=== PATIENT | male | born 1945 | race Caucasian/White ===

== ENCOUNTER 2017-07-20 09:47 | Inpatient (IN) | payer OTHER, MEDICARE ==
--- NOTE | 2017-07-20 10:39 | EDPHY ---
General - History Smoking Status: Never smoked Time Seen by Provider: 07/20/17 10:25 Narrative: CHIEF COMPLAINT: Fever, malaise HISTORY OF PRESENT ILLNESS: Patient complains of 1 week history of malaise, fever and chills. Gradual onset. Constant duration. He denies chest pain, shortness of breath, cough, runny nose, sore throat. No urinary complaints. He describes feeling profoundly weak and malaise. Occasional body aches. No neck pain or stiffness. No headache. He has been taking [id number] medications with minimal improved. Does have a history of CLL and prostate cancer, no history of chemotherapy or radiation. No recent travel, surgery or known sick contacts. He did receive his flu shot this year. No other associated complaints or modifying factors. REVIEW OF SYSTEMS: Ten systems reviewed and are negative unless otherwise noted in the HPI PCP: Dr. Yoel Syed SPECIALISTS: [facility] Dr. Bettencourt PAST MEDICAL HISTORY: CLL, prostate cancer, BPH, coronary artery disease PAST SURGICAL HISTORY: No recent surgeries SOCIAL HISTORY: Never smoker. No drug or alcohol use. Lives independently locally FAMILY HISTORY: Noncontributory EXAMINATION General Appearance: Alert, no distress. Well-developed well-nourished for Head: normocephalic, atraumatic Eyes: Pupils equal and round, no conjunctival pallor or injection ENT, Mouth: Mucous membranes dry. Airway widely patent. No erythema or edema. Neck: Normal inspection, supple, non-tender Respiratory: Lungs are clear to auscultation. No wheeze, rhonchi or crackles Cardiovascular: Regular rate and rhythm. No murmur. Gastrointestinal: Abdomen is soft and nontender. No distention. No tympany. No rigidity. Back: non-tender, no bony abnormalities Neurological: GCS 15. A&O, nonfocal, normal gait Skin: Warm and dry, no rash no petechiae or purpura Extremities: Nontender, no pedal edema Psychiatric: Mood and affect normal DIFFERENTIAL DIAGNOSES: Including but not limited to sepsis, influenza, urinary tract infection, pneumonia, viral syndrome MDM: 10:40 a.m. Fever, malaise and myalgias over the past week with no definite system complaint. Vital signs within normal limits. He is not on chemotherapy or radiation therapy. He is afebrile. He does not meet SIRS criteria. He is in no acute distress but I have ordered laboratory studies, chest x-ray urinalysis and IV fluid resuscitation. He is resting comfortably at this time. Dr. Nixon aware of the patient and his vitals. 11:30 a.m. CBC reveals leukocytosis. Chemistry reveals mild hypokalemia and hyponatremia. Urinalysis pending. Influenza test pending. Chest x-ray has been read as a right lower lobe consolidated pneumonia. This does not clinically correlate, await respiratory pathogen panel and monitor him. He is on a pulse oximeter with normal oxygenation between 92 and 96% intermittently. Influenza test is negative. Remainder of the respiratory pathogen panel is pending. Lactic acid has been ordered due to leukocytosis. 11:50 a.m. Lactic acid is normal at 1.0. Patient is attempting to provide a urine sample this time. 12:30 p.m. Patient re-evaluated. He has been evaluated Dr. Kristin Nixon. She recommends CT scan of the chest and proceed with admission with diagnosis of pneumonia. The patient does not meet criteria for sepsis. He has been awake and alert, no acute distress with normal blood pressure, no tachycardia. His oxygenation has been normal on room air. I have ordered a CT scan of the chest and contacted hospitalist for admission. 12:40 p.m. Case discussed with Dr. Jasso. He will admit the patient is service. He agrees with our management and with choice of Rocephin and Zithromax IV for antibiotics. Patient is admitted in stable condition and will receive his CT scan of the chest prior to admission. SUPERVISION: Patient was evaluated and examined in conjunction with my secondary supervising physician as documented. We have both examined the patient. (Madhu Johnson) Discussion: I evaluated and participated in the management of the patient. I also evaluated the patient independently. My co-signature indicates that I have reviewed this chart and I agree with the findings and plan of care as documented. My personal H&P findings include: 72-year-old gentleman presents emergency department reporting 8 days of fever. Patient denies any chest pain or shortness of breath. He denies a cough for runny nose. He does report feeling very weak. No headache. Patient has a significant history of CLL as well as prostate cancer but is currently undergoing no chemotherapy or radiation. On examination the patient is alert and oriented in no acute distress. Lungs are clear to auscultation. No wheezes or rhonchi. Abdomen is soft and nontender. The evaluation emergency department demonstrated a dense right lower lobe pneumonia. CT scan of the chest was performed to evaluate potential pulmonary embolism with postobstructive pneumonia. This was negative for any PE. Patient was admitted to the hospital for ongoing observation, respiratory support, antibiotics. (Kristin Nixon) - Objective Vital Signs: Initial Vital Signs Temperature (C) 36.9 C 07/20/17 09:51 Heart Rate 80 07/20/17 09:51 Respiratory Rate 18 07/20/17 09:51 Blood Pressure 137/77 H 07/20/17 09:51 O2 Sat (%) 92 07/20/17 09:51 O2 Delivery Mode Nasal Cannula O2 (L/minute) 2 Allergies/Adverse Reactions: No Known Allergies Allergy (Verified 07/20/17 09:48) Home Medications: Medication Instructions Recorded Aspirin [Aspirin 81mg (*)] 81 mg PO DAILY 07/20/17 Ibuprofen [Motrin (*)] 200 mg PO Q6HRS PRN 07/20/17 Lisinopril/Hydrochlorothiazide 1 each PO DAILY 07/20/17 [Zestoretic 20-25 mg Tablet] Multivitamins [Multivitamin (*)] 1 each PO DAILY 07/20/17 [place]-3 Fatty Acids [Fish Oil 1000 1,000 mg PO DAILY 07/20/17 mg (*)] Rosuvastatin Calcium [Crestor 40mg 40 mg PO DAILY 07/20/17 (*)] Laboratory Results: Laboratory Results 07/20/17 11:02 07/20/17 11:02 Microbiology Results: MICROBIOLOGY 07/20/17 11:02 Blood Blood Culture - Preliminary 07/20/17 11:20 Blood Blood Culture - Preliminary Medications Given: Acetaminophen (Tylenol) 650 mg PO Q4HRS PRN PRN Reason: Pain, Mild/Fever, Can Take PO Stop: 01/16/18 14:41 Last Admin: 07/20/17 20:32 Dose: 650 mg Aspirin (Aspirin) 81 mg PO DAILY OCHOA Stop: 01/17/18 08:59 Last Admin: 07/21/17 09:14 Dose: 81 mg Atorvastatin Calcium (Lipitor) 40 mg PO DAILY OCHOA Stop: 01/18/18 08:59 Last Admin: 07/22/17 08:49 Dose: Not Given Azithromycin (Zithromax) 500 mg PO DAILY OCHOA PRN Reason: Protocol Stop: 08/20/17 08:59 Last Admin: 07/22/17 08:49 Dose: 500 mg Diphenhydramine HCl (Benadryl Cream) 1 devin TP QID PRN PRN Reason: Itching Stop: 01/18/18 21:11 Last Admin: 07/22/17 22:19 Dose: 1 devin Enoxaparin Sodium (Lovenox) 40 mg SC DAILY OCHOA Stop: 01/17/18 08:59 Last Admin: 07/21/17 09:41 Dose: 40 mg Guaifenesin (Mucinex) 1,200 mg PO BID OCHOA Stop: 01/16/18 14:44 Last Admin: 07/22/17 21:03 Dose: 1,200 mg Lisinopril/HCTZ (Zestoretic) 2 ea PO DAILY OCHOA Stop: 01/17/18 08:59 Last Admin: 07/21/17 09:14 Dose: 2 ea Ceftriaxone Sodium/Dextrose (Rocephin 1 Gm (Premix)) 50 mls @ 100 mls/hr IV DAILY OCHOA PRN Reason: Protocol Stop: 08/20/17 08:59 Last Admin: 07/22/17 10:11 Dose: 50 mls Multivitamins (Tab-A-Katie) 1 each PO DAILY OCHOA Stop: 01/17/18 08:59 Last Admin: 07/22/17 08:49 Dose: 1 each Pantoprazole Sodium (Protonix) 40 mg PO BID OCHOA Stop: 01/17/18 15:30 Last Admin: 07/22/17 21:03 Dose: 40 mg Discontinued Medications Sodium Chloride (Ns) 1,000 mls @ 0 mls/hr IV EDNOW ONE; Wide Open PRN Reason: Protocol Stop: 07/20/17 10:41 Last Admin: 07/20/17 11:20 Dose: 1,000 mls Sodium Chloride (Ns) 1,000 mls @ 0 mls/hr IV EDNOW ONE; Wide Open PRN Reason: Protocol Stop: 07/20/17 11:54 Last Admin: 07/20/17 11:45 Dose: 1,000 mls Azithromycin 500 mg/ Sodium (Chloride) 255 mls @ 255 mls/hr IV EDNOW ONE PRN Reason: Protocol Stop: 07/20/17 13:39 Last Admin: 07/20/17 14:35 Dose: 255 mls Ceftriaxone Sodium/Dextrose (Rocephin 1 Gm (Premix)) 50 mls @ 100 mls/hr IV EDNOW ONE PRN Reason: Protocol Stop: 07/20/17 13:09 Last Admin: 07/20/17 13:11 Dose: 50 mls Sodium Chloride (Ns) 1,000 mls @ 100 mls/hr IV CONT OCHOA Stop: 01/16/18 14:44 Last Admin: 07/21/17 10:48 Dose: 1,000 mls Sodium Chloride (Ns) 1,000 mls @ 75 mls/hr IV CONT OCHOA Stop: 01/17/18 16:59 Last Admin: 07/22/17 05:55 Dose: 1,000 mls Potassium Chloride (Klor Packets) 40 meq PO ONCE ONE PRN Reason: Protocol Stop: 07/20/17 15:16 Last Admin: 07/20/17 15:26 Dose: 40 meq Potassium Chloride (Klor-Con) 10 meq PO ONCE ONE PRN Reason: Protocol Stop: 07/20/17 19:47 Last Admin: 07/20/17 20:31 Dose: 10 meq Potassium Chloride (Klor-Con) 10 meq PO ONCE ONE PRN Reason: Protocol Stop: 07/21/17 07:39 Last Admin: 07/21/17 09:14 Dose: 10 meq Potassium Chloride (Klor-Con) 10 - 40 meq PO ONCE ONE PRN Reason: Protocol Stop: 07/21/17 22:43 Last Admin: 07/21/17 23:23 Dose: 10 meq Potassium Chloride (Klor-Con) 10 - 40 meq PO ONCE ONE PRN Reason: Protocol Stop: 07/22/17 07:34 Last Admin: 07/22/17 08:48 Dose: 30 meq Potassium Chloride (Klor-Con) 40 meq PO ONCE ONE PRN Reason: Protocol Stop: 07/22/17 17:06 Last Admin: 07/22/17 17:23 Dose: 40 meq Rosuvastatin Calcium (Crestor) 40 mg PO DAILY OCHOA Stop: 01/17/18 08:59 Last Admin: 07/21/17 09:14 Dose: Not Given Sodium Chloride (Salt Tablet) 1,000 mg PO BIDMEAL OCHOA Stop: 07/22/17 18:01 Last Admin: 07/22/17 17:22 Dose: 1,000 mg Zolpidem Tartrate (Ambien) 5 - 10 mg PO HS PRN PRN Reason: Sleep/Insomnia, use 1st Stop: 01/16/18 14:41 Last Admin: 07/20/17 20:32 Dose: 5 mg Departure - Departure Disposition: [facility] Acute Clinical Impression: Right lower lobe pneumonia Qualifiers: Pneumonia type: due to unspecified organism Qualified Code(s): J18.1 - Lobar pneumonia, unspecified organism Condition: Good
[2017-07-20] MEDS ORDERED: NS 1,000 ML IV ONE ×2 (10:40→11:53)
[2017-07-20 11:12] LABS: PLATELET COUNT 213 10^3/uL (150-400)
[2017-07-20 11:26] LABS: INR 1.31 (0.83-1.16); PROTIME(PATIENT) 16.5 SEC (12.0-15.0)
[2017-07-20] MEDS ORDERED: AZITHROMYCIN IV 500 MG in NS 250 ML IV ONE (12:40)
[2017-07-20] MEDS ORDERED: IOPAMIDOL (ISOVUE 370) 100 ML BTL IV ONE (12:44)
[2017-07-20] MEDS ORDERED: IBUPROFEN 200 MG TAB PO PRN (14:40)
[2017-07-20] MEDS ORDERED: ONDANSETRON DISINTEGRATING 4 MG TAB PO PRN (14:42)
[2017-07-20] MEDS ORDERED: ZOLPIDEM TARTRATE 5 MG TAB PO PRN (14:42)
[2017-07-20] MEDS ORDERED: ALBUTEROL 3 ML DEYVIAL IH PRN (14:42)
[2017-07-20] MEDS ORDERED: ONDANSETRON 4 MG/2 ML VIAL IVP PRN (14:42)
[2017-07-20] MEDS ORDERED: ACETAMINOPHEN 325 MG TAB PO PRN (14:42)
[2017-07-20] MEDS ORDERED: PROTOCOL POTASSIUM 1 DOSE MISC PRN (14:53)
[2017-07-20] MEDS ORDERED: POTASSIUM CL 10 MEQ TAB PO ONE ×2 (15:06→19:46)
[2017-07-20] MEDS ORDERED: POTASSIUM CL 20 MEQ PKT PO ONE (15:15)
[2017-07-20] MEDS: guaiFENesin 600 MG TAB.ER PO SCH ×2 (15:26→20:31)
[2017-07-20] MEDS: NS 1,000 ML IV SCH (15:26)
--- NOTE | 2017-07-20 15:27 | GHP ---
[f rep st] HISTORY AND PHYSICAL DATE OF ADMISSION: 07/20/2017 CHIEF COMPLAINT: Fevers, malaise. HISTORY OF PRESENT ILLNESS: The patient is a 72-year-old man with a history significant for stable C LL with a white count of 13,000 and prostate cancer. He comes in with 8 days of feeling malaise asso ciated with fevers of up to 103 and some mild muscle aches. He recently was vacationing in [place] f or a month and came back on July 11, and on July 12 started to feel poorly. On July 13, he sta rted to feel quite bad, went to bed, and said he has been pretty much in bed ever since then. He has had fevers, chills, shakiness. T-max is 103. He denies significant cough, shortness of breath, or chest pain. He did start with some muscle aches in his legs, but that has since gotten better. He h as had no nausea, vomiting, diarrhea. No significant changes in his urination except it is more conc entrated. He feels like he has had some anorexia, poor p.o. intake, and a weight loss of about 5-10 pounds in that time period. He denies any headache, sore throat, earache. No joint pains or swellin g. No rash. REVIEW OF SYSTEMS: A 10-point review of systems was done with pertinent positives present in HPI. PAST MEDICAL HISTORY: 1. CLL with a white count around 13,000. 2. Prostate cancer with elevated PSA and nodule. He is watching his PSA. No further treatment. 3. Coronary artery disease with a positive calcium score. He has had negative stress testing. 4. Hypertension. 5. Dyslipidemia. FAMILY HISTORY: Reviewed and not related. SOCIAL HISTORY: He is . He does not smoke. He drinks maybe 1 beer a day. His stepdaughter is a nurse here in the PACU. He has 2 stepsons and a biological son as well. CURRENT MEDICATIONS: Include Crestor, fish oil, multivitamin, ibuprofen, Zestoretic, and aspirin. ALLERGIES: No known drug allergies. PHYSICAL EXAM: VITAL SIGNS: He has been afebrile here. Heart rate 79, blood pressure 141/81, respi rations 18. He is 90% on room air, 97% on 2 L. GENERAL: He is a very pleasant 72-year-old man in s ome mild distress. He is alert and oriented. Speech is clear and fluent. HEENT: Pupils are equal, round, and reactive. Extraocular movements intact. Sclerae are anicteric. Mucous membranes moist. Oropharynx clear. NECK: Supple. No obvious adenopathy. HEART: Regular rate and rhythm. No mur mur, gallop, or rub. LUNGS: He has crackles in the right mid lung. LYMPH NODES: No lymphadenopath y in the axilla. ABDOMEN: Soft. No masses. Nontender. EXTREMITIES: No clubbing, cyanosis, or ed jesu. Pulses intact distally. MUSCULOSKELETAL: No joint effusions or deformities. NEUROLOGIC: His speech is fluent. He is alert, and he is moving all 4 extremities. LABORATORY DATA: CBC shows a white count of 13.2, 50% lymphocytes, hemoglobin 13, with a platelet co unt of 213. He does have 27% bands noted. Lactic acid is normal. INR slightly elevated at 1.31. E lectrolytes show a potassium of 3.2. Normal renal function. Urinalysis shows 5-10 white cells. Inf luenza A and B are negative. Viral panel is negative. Blood cultures are pending. Chest x-ray show s a right middle lobe infiltrate, personally reviewed and interpreted. Chest and thoracic CT angiogr am shows no pulmonary emboli, dense right lower lobe pneumonia with parapneumonic effusion, a subcent imeter lingular nodule with surrounding ground-glass opacity which is nonspecific, and enlarged right hilar lymph nodes. Recommendation is for followup noncontrast CT within 3 months. ASSESSMENT AND PLAN: 72-year-old man presents with malaise and fevers over the past week. Evaluatio n included chest x-ray, which is notable for right middle lobe pneumonia. 1. Community-acquired pneumonia associated with mild respiratory failure. Will start him on ceftria xone and Zithromax. Follow him clinically. I did review the CT scan results and chest x-ray with e patient and family. 2. Lung nodule noted in the lingula. Patient will need a followup CT scan in 3 months, noncontrast. 3. Hypokalemia. Will add potassium protocol. I suspect this is likely from poor p.o. intake while he has been ill. 4. Chronic lymphocytic leukemia. Stable white count. We will repeat this in the a.m. 5. History of prostate cancer. 6. Coronary artery disease. Patient has no symptoms at this time, and it sounds like it is likely n onobstructive disease. 7. Dyslipidemia. Continue statin. 8. Hypertension. Continue his usual medication. The patient is very mildly hypertensive at this ti me. 9. Deep vein thrombosis prophylaxis. Low molecular weight heparin. Copy requested to: Dr. Joe Syed /[id number]/MODL
[2017-07-20] MEDS ORDERED: SODIUM CL NASAL 45 ML BTL EACHNARE PRN (20:06)
[2017-07-21 04:44] LABS: PLATELET COUNT 195 10^3/uL (150-400)
[2017-07-21] MEDS ORDERED: POTASSIUM CL 10 MEQ TAB PO ONE ×2 (07:38→22:42)
[2017-07-21] MEDS ORDERED: ASPIRIN 81 MG CHEWABLE TAB PO SCH (09:00)
[2017-07-21] MEDS ORDERED: ROSUVASTATIN CALCIUM 40 MG TAB PO SCH (09:00)
[2017-07-21] MEDS ORDERED: LISINOPRIL/HCTZ 10/12.5 MG 1 EA TAB PO SCH (09:00)
[2017-07-21] MEDS: guaiFENesin 600 MG TAB.ER PO SCH ×2 (09:13→20:57)
[2017-07-21] MEDS: AZITHROMYCIN 250 MG TAB PO SCH (09:13)
[2017-07-21] MEDS: MULTIVITAMINS 1 EACH TAB PO SCH (09:14)
[2017-07-21] MEDS: ENOXAPARIN 40 MG/0.4 ML SYR SC SCH ×3 (09:15→09:41)
[2017-07-21] MEDS: NS 1,000 ML IV SCH ×2 (10:48→17:10)
--- NOTE | 2017-07-21 13:55 | ASMTCMCOM ---
CM Note CM Note Notes: Discussed pt in rounds this AM. He is here w/PNA, hx of CLL. Pt lives at home w/. Awaiting PT recommendation. CM will follow. Date Signed: 07/21/2017 01:54 PM Electronically Signed By:Harriett Manning RN
--- NOTE | 2017-07-21 15:23 | HOSPPROG ---
Hospitalist Progress Note Assessment/Plan: CAP - BCx's and sputum cultures pending. -cont Ceftriaxone, Azithromycin -supportive care AHRF secondary to above - 2 LPM -wean O2 as able Lingular lung nodule - discussed need for f/u imaging in 3 months Hyponatremia - mild, note HCTZ use. -hold HCTZ -trend, S/P NS Melena - one episode this afternoon. Hemodynamically stable. -check hemoccult -trend h&h -stop nsaids, hold asa and lovenox -start BID PPI -transfuse for hgb <8 given CAD -if e/o ongoing bleeding or hgb trending down, will consult GI for EGD, make NPO at midnight just in case CAD - recent neg stress test - no symptoms CLL - stable Hypertension - Holding anti-hypertensives for now Hyperlipidemia - cont statin Prostate ca Full code DVT PPLX - Lovenox Dispo - cont inpt Subjective: Pt feels tired. Less achey. Coughing a bit. No CP or SOB at rest. Reports he had a large black tarry stool, which was unwitnessed. He flushed it. No further episodes. No vomiting. No h/o GIB. He takes a lot of nsaids and daily ASA. Also got lovenox toda Objective: Vital Signs Temp Pulse Resp BP Pulse Ox 37.3 C 70 16 115/65 91 L 07/21/17 11:37 07/21/17 11:37 07/21/17 11:37 07/21/17 11:37 07/21/17 11:37 Laboratory Results 07/21/17 03:25 07/21/17 03:25 07/20/17 07/21/17 07/22/17 05:59 05:59 05:59 Intake Total 1890 240 Output Total 825 400 Balance 1065 -160 PT 16.5 SEC (12.0-15.0) H 07/20/17 11:02 INR 1.31 (0.83-1.16) H 07/20/17 11:02 - Physical Exam Constitutional: no apparent distress Eyes: PERRL Ears, Nose, Mouth, Throat: moist mucous membranes Cardiovascular: regular rate and rhythym Respiratory: no respiratory distress, inspiratory crackles Gastrointestinal: normoactive bowel sounds, soft, non-tender abdomen Skin: warm Musculoskeletal: full muscle strength Neurologic: AAOx3 Psychiatric: interacting appropriately ICD10 Worksheet Patient Problems: Problems Problem Status Onset Right lower lobe pneumonia Acute
[2017-07-21] MEDS: PANTOPRAZOLE SODIUM 40 MG TAB PO SCH ×2 (16:33→20:56)
--- NOTE | 2017-07-21 16:42 | PDMN ---
Medical Necessity Medical necessity: Change to IP, as of 07/21/17, per MD; los >2 mn for ongoing management of RLL pneumonia & lung nodule w/acute hypoxic respiratory failure, hyponatremia & melena; admit for further workup/monitoring, respiratory supportive care, IV abx, med management & therapy; hx CAD, HTN, prostate cancer ; per progress note & order 07/21/17
[2017-07-22 05:22] LABS: PLATELET COUNT 231 10^3/uL (150-400)
[2017-07-22] MEDS: NS 1,000 ML IV SCH (05:55)
[2017-07-22] MEDS ORDERED: POTASSIUM CL 10 MEQ TAB PO ONE ×2 (07:33→17:05)
[2017-07-22] MEDS: SODIUM CHLORIDE 1,000 MG TAB PO SCH ×2 (08:48→17:22)
[2017-07-22] MEDS: guaiFENesin 600 MG TAB.ER PO SCH ×2 (08:49→21:03)
[2017-07-22] MEDS: PANTOPRAZOLE SODIUM 40 MG TAB PO SCH ×2 (08:49→21:03)
[2017-07-22] MEDS: ATORVASTATIN CALCIUM 40 MG TAB PO SCH (08:49)
[2017-07-22] MEDS: AZITHROMYCIN 250 MG TAB PO SCH (08:49)
[2017-07-22] MEDS: MULTIVITAMINS 1 EACH TAB PO SCH (08:49)
--- NOTE | 2017-07-22 14:04 | HOSPPROG ---
Hospitalist Progress Note Assessment/Plan: CAP - BCx's and sputum cultures NGTD. Now on room air. -cont Ceftriaxone, Azithromycin -likely change to oral atbx tomorrow -supportive care Lingular lung nodule - discussed need for f/u imaging in 3 months Hyponatremia - mild, note HCTZ use and likely a hypovolemic / low solute component -hold HCTZ -improved a bit with NS -will give a couple doses of salt tabs, encourage solute intake Melena - one episode yesterday afternoon, unwitnessed. No recurrence. Hemodynamically stable. He was taking large doses of Ibuprofen (3,200 mg daily ) for past week prior to arrival -check hemoccult (no stools since event yesterday) -trending h&h (stable ~10.5) -stop nsaids, cont to hold asa and lovenox -cont BID PPI -if e/o ongoing bleeding or hgb trending down, will consult GI for EGD, make NPO at midnight just in case (call out to GI to discuss indication for EGD) CAD - recent neg stress test - no symptoms CLL - stable Hypertension - Holding anti-hypertensives for now Hyperlipidemia - cont statin Prostate ca Full code DVT PPLX - Lovenox Dispo - cont inpt Subjective: Feels much better. No more black tarry stools. No more fevers. He notes he was taking 3,200 mg of ibuprofen daily. He knows this is too much. Eating better. No CP or SOB. Objective: Vital Signs Temp Pulse Resp BP Pulse Ox 36.8 C 79 16 120/78 90 L 07/22/17 11:30 07/22/17 11:30 07/22/17 11:30 07/22/17 11:30 07/22/17 11:30 Microbiology 07/21/17 12:00 - Final Sputum, Expectorated Laboratory Results 07/22/17 05:02 07/22/17 05:02 07/21/17 07/22/17 07/23/17 05:59 05:59 05:59 Intake Total 0834 235 1493 Output Total 825 2400 1125 Balance 1065 -2160 -56 PT 16.5 SEC (12.0-15.0) H 07/20/17 11:02 INR 1.31 (0.83-1.16) H 07/20/17 11:02 - Physical Exam Constitutional: no apparent distress Eyes: PERRL Ears, Nose, Mouth, Throat: moist mucous membranes Cardiovascular: regular rate and rhythym Respiratory: no respiratory distress, inspiratory crackles Gastrointestinal: normoactive bowel sounds, soft, non-tender abdomen Skin: warm Musculoskeletal: full muscle strength Neurologic: AAOx3 Psychiatric: interacting appropriately ICD10 Worksheet Patient Problems: Problems Problem Status Onset Right lower lobe pneumonia Acute chronic disease mgmt/transitional care Acute
--- NOTE | 2017-07-22 15:36 | ASMTCMCOM ---
CM Note CM Note Notes: Reviewed chart and discussed w/RN. Pt lives at home w/ who is an RN and daughter is employee of [employer]. PT cleared pt to dc home when med ready, no home PT needed. Anticipate pt will dc home w/, no CM needs. Date Signed: 07/22/2017 03:35 PM Electronically Signed By:Harriett Manning RN
[2017-07-22] MEDS ORDERED: PROTOCOL MAGNESIUM 1 DOSE IV PRN (17:45)
[2017-07-22] MEDS ORDERED: DIPHENHYDRAMINE CREAM TP PRN (21:12)
[2017-07-23] MEDS: MULTIVITAMINS 1 EACH TAB PO SCH (08:48)
[2017-07-23] MEDS: guaiFENesin 600 MG TAB.ER PO SCH ×2 (08:48→21:02)
[2017-07-23] MEDS: AZITHROMYCIN 250 MG TAB PO SCH (08:49)
[2017-07-23] MEDS: PANTOPRAZOLE SODIUM 40 MG TAB PO SCH ×2 (08:49→21:02)
[2017-07-23] MEDS: ATORVASTATIN CALCIUM 40 MG TAB PO SCH (08:51)
--- NOTE | 2017-07-23 12:14 | HOSPPROG ---
Hospitalist Progress Note Assessment/Plan: CAP - BCx's and sputum cultures NGTD. Now on room air. -he has completed 1.5 g of Azithromycin, will d/c -change to oral Cefdinir tomorrow -cont supportive care, walking O2 sat in am Lingular lung nodule - discussed need for f/u imaging in 3 months Hyponatremia -resolved with NS, salt tabs -encourage solute Melena - one episode 07/21, unwitnessed. Now having dark, heme positive stools. Hemodynamically stable. He was taking large doses of Ibuprofen (3,200 mg daily) for past week prior to arrival -cont to trend h&h today -stop nsaids, cont to hold asa and lovenox -cont BID PPI -discussed with Dr. Boggs, GI. Will cont to monitor h&h today, if no change, defer EGD to outpt setting (pt also notes early satiety and should like be scoped at some point). CAD - recent neg stress test - no symptoms CLL - stable, follows with Dr. Norris Hypertension - Holding anti-hypertensives for now. -resume lisinopril 10 at dc -will stop hctz given hyponatremia Hyperlipidemia - cont statin Prostate ca Full code DVT PPLX - Lovenox Dispo - cont inpt Subjective: Pt feels better. Required 2.5 LPM O2 overnight, room air now, but sats just 90-91. Coughing less. No fevers. No CP or SOB. Had 2 loose stools since yest, but no more melena. Objective: Vital Signs Temp Pulse Resp BP Pulse Ox 36.9 C 74 16 130/74 H 93 07/23/17 07:58 07/23/17 07:58 07/23/17 07:58 07/23/17 07:58 07/23/17 07:58 Microbiology 07/21/17 12:00 - Final Sputum, Expectorated Laboratory Results 07/23/17 10:47 07/23/17 04:20 07/22/17 07/23/17 07/24/17 05:59 05:59 05:59 Intake Total 240 1494 Output Total 2400 1925 300 Balance -2160 -431 -300 PT 16.5 SEC (12.0-15.0) H 07/20/17 11:02 INR 1.31 (0.83-1.16) H 07/20/17 11:02 - Physical Exam Constitutional: no apparent distress Eyes: PERRL Ears, Nose, Mouth, Throat: moist mucous membranes Cardiovascular: regular rate and rhythym Respiratory: no respiratory distress, inspiratory crackles Gastrointestinal: normoactive bowel sounds, soft, non-tender abdomen Skin: warm Musculoskeletal: full muscle strength Neurologic: AAOx3 Psychiatric: interacting appropriately ICD10 Worksheet Patient Problems: Problems Problem Status Onset Right lower lobe pneumonia Acute chronic disease mgmt/transitional care Acute
[2017-07-23] MEDS ORDERED: MAGNESIUM SULF 1 GM/DEXTROSE 100 ML IV ONE (14:51)
[2017-07-23] MEDS ORDERED: POTASSIUM CL 10 MEQ TAB PO ONE ×2 (14:53→19:51)
--- NOTE | 2017-07-23 16:21 | ASMTCMCOM ---
CM Note CM Note Notes: Reviewed chart, spoke with LETICIA Hale regarding discharge plan of care, pt's progress. Per notes, pt continues to have dark stools; Gastroenterology following, possible EGD if H/H becomes unstable. Per Alexia, pt's and dghtr work here at [facility] [employer]. Pt will likely discharge home independently with family support when medically stable. CM will continue to follow for any potential needs. Current Discharge Plan: Home independently Date Signed: 07/23/2017 04:21 PM Electronically Signed By:Josey Chavarria RN
[2017-07-24 06:15] VITALS: BP 144/80
[2017-07-24] MEDS: guaiFENesin 600 MG TAB.ER PO SCH (08:51)
[2017-07-24] MEDS: PANTOPRAZOLE SODIUM 40 MG TAB PO SCH (08:52)
[2017-07-24] MEDS: MULTIVITAMINS 1 EACH TAB PO SCH (08:53)
[2017-07-24] MEDS ORDERED: CEFDINIR 300 MG CAP PO SCH (09:00)
--- NOTE | 2017-07-24 09:23 | ASMTCMCOM ---
CM Note CM Note Notes: Pt to DC today with no DC needs. Date Signed: 07/24/2017 09:23 AM Electronically Signed By:Sarah Beth Aguillon LCSW
--- NOTE | 2017-07-24 16:51 | GDS ---
[f rep st] DISCHARGE SUMMARY DISCHARGE DIAGNOSES: 1. Acute hypoxemic respiratory failure secondary to community-acquired pneumonia; discharged on room air. 2. Community-acquired pneumonia. 3. Lingular lung nodule; needs followup chest imaging in 3 months. 4. Hyponatremia, resolved. 5. Melena, isolated episode. 6. Coronary artery disease. 7. CLL. 8. Hypertension. 9. Hyperlipidemia. 10. Prostate cancer. CONSULTANTS: None. HISTORY: For details, please see the history and physical dated July 20, 2017. In brief, the patie nt is a 72-year-old male with a history of CLL, hypertension, and coronary artery disease based on a positive calcium score. He presents emergency department with fevers and malaise. He was diagnosed with community-acquired pneumonia and admitted to the hospital for further management. HOSPITAL COURSE: Blood cultures were drawn in the emergency department and remained negative. He wa s treated with ceftriaxone and azithromycin for 4 days and was transitioned to oral Omnicef at [facility]. His hypoxemia resolved; he is satting 95% on room air on the day of discharge. He was incident ally noted to have a lingular lung nodule which will require followup CT scan in 3 months. In additi on, I recommend a followup chest x-ray in 4-6 weeks to ensure resolution of pneumonia During his hospitalization, he had one isolated episode of a self-reported melenic stool. This was n ot witnessed by staff as he flushed it. He had been taking 3200 mg a day of ibuprofen for over a wee k leading up to admission, and I suspect this, as well as a possible stress-induced ulcer may have be en responsible for his isolated melena episode. He did have an initial drop in his hemoglobin from 1 3-11, though it is noted he received aggressive IV fluid resuscitation on admission and may have had some dilutional component. During the 48 hours following his melanotic episodes, his hemoglobin did not change and is 11 prior to discharge. I discussed the case with Gastroenterology, Dr. Pee Boggs, who did not recommend inpatient endoscopy given the lack of evidence of active bleeding. He was treated with twice daily Protonix therapy, an d this is continued at discharge. I recommend he follow up with GI of the [facility] for outpatient [facility] endoscopy, especially in light of his reported symptoms of early satiety in the setting of a possi ble isolated upper bleed. DISPOSITION: Patient is discharged home in stable condition. FOLLOWUP: 1. Kunal Diaz MD, primary care. 2. Pee Boggs MD, FACG, Gastroenterology of [facility] for consideration of outpatient endoscop y. DISCHARGE MEDICATIONS: Please see [facility] for completed outpatient medication list. New medications on discharge include: 1. Cefdinir 300 mg p.o. b.i.d. (#8/no refills). 2. Guaifenesin 1200 mg p.o. b.i.d. 3. Protonix 40 mg p.o. (#60 no refills). He is instructed to deescalate to 40 mg once da joanne after a month of this dose. 4. Lisinopril 10 mg daily. Please note, I decreased his lisinopril dose from 20-10 given his lowish blood pressures. In addition, his hydrochlorothiazide is discontinued for now as he presented with both hyponatremia and hypokalemia. He may warrant up-titration of his lisinopril and will defer cons ideration of re-initiating HCTZ to his primary care physician. /[id number]/MODL
== END 2017-07-24 10:01 | disposition home or self-care (01) | DRG 193 ==
LOC: INTOOBSV 12:40 → F2W 13:52 → OBSVTOIN 14:42 → F1N 07-21 17:33
PROVIDERS: ADMIT Student in an Organized Health Care Education/Training Program; ATTEND Student in an Organized Health Care Education/Training Program
DX: J18.9 Pneumonia, unspecified organism (principal); J96.01 Acute respiratory failure with hypoxia; I25.10 Atherosclerotic heart disease of native coronary artery without angina pectoris; E87.1 Hypo-osmolality and hyponatremia; R91.1 Solitary pulmonary nodule; K92.1 Melena; N40.0 Benign prostatic hyperplasia without lower urinary tract symptoms; C91.11 Chronic lymphocytic leukemia of B-cell type in remission; Z85.46 Personal history of malignant neoplasm of prostate; I10 Essential (primary) hypertension
CPT/HCPCS: 96365; 97161-GP; G0378; G8978-GP-CH; G8979-GP-CH; G8980-GP-CH; J0456; J0696; J1650; J3475; Q9967

== ENCOUNTER → 2017-08-23 | Outpatient (CLI) | payer OTHER, MEDICARE | LOC: FLAB 18:00 | PROVIDERS: ATTEND Internal Medicine | DX: Z09 Encounter for follow-up examination after completed treatment for conditions other than malignant neoplasm (principal) ==

== ENCOUNTER → 2017-08-24 | Outpatient (CLI) | payer OTHER, MEDICARE ==
[~2017-08-24] MED LIST: GADOBUTROL 10 ML VIAL IVP ONE
== END ==
LOC: FIMAGING 12:48
PROVIDERS: ATTEND Urology
DX: C61 Malignant neoplasm of prostate (principal)
CPT/HCPCS: 72197; 76377; A9585

== ENCOUNTER → 2017-10-22 | Outpatient (CLI) | payer OTHER, MEDICARE | LOC: FIMAGING 09:26 | PROVIDERS: ATTEND Internal Medicine | DX: Z87.09 Personal history of other diseases of the respiratory system (principal) ==

== ENCOUNTER → 2018-03-14 | Outpatient (CLI) | payer OTHER, MEDICARE | LOC: GIMAGING 10:32 | PROVIDERS: ATTEND Nurse Practitioner Acute Care | DX: J98.11 Atelectasis (principal) | CPT/HCPCS: 71046-PO ==